=== PATIENT | female | born 1980 | race Caucasian/White ===

== ENCOUNTER 2016-10-18 05:15 | Inpatient (IN) | payer OTHER ==
[~2016-10-18] VITALS: Ht 160 cm; Wt 89.4 kg
--- NOTE | ~2016-10-18 | EKG ---
[address] [address] ELECTROCARDIOGRAM REPORT Name: LISAVIDYA Room #: 316-P ADM IN M.R.#: [id number] Admission: 10/18/16 Attend Phys: Sharmin Amador MD Discharge: Date of : 78 Report #: [id number] THIS REPORT FOR: //name// [facility] ED Test Date: 2016-10-18 Test Time: 05:29:51 Pat Name: VIDYA GONZALEZ Department: Room: [facility] Gender: F Belt Sander: KATRINA : 1980 Requested By: Jelena Peguero Order Number: [id number] MD: Lamin Kim Measurements Intervals [place] Rate: 85 P: 41 ME: 128 QRS: 21 QRSD: 83 T: 42 QT: 358 QTc: 426 Interpretive Statements Sinus rhythm Borderline repolarization abnormality Baseline wander in lead(s) V3,V4 No previous ECG available for comparison Electronically Signed On 10-18-2016 8:29:57 PLANNED GIVING OFFICER by Lamin Kim [email or web address] <ELECTRONICALLY SIGNED> By: Lamin Kim MD 10/18/16828 8 8 Lamin Kim MD /SHANE
--- NOTE | ~2016-10-18 | 2DMMODE ---
[facility] [place] [address] 2 D/M-MODE ECHOCARDIOGRAM Name: VIDYA GONZALEZ Room #: 316-P [facility] IN ..#: [id number] Admission: 10/18/16 Attend Phys: Sharmin Amador, Discharge: Date of : 78 Date of Service: 10/18/16 1107 Report #: [id number] THIS REPORT FOR: //name// Transthoracic Echocardiography Ordering physician: Mackenzie Nieto Referring physician: Mackenzie Nieto Casting Inspector: ISAAK Boyer Indications/History: Pulmonary embolism. BP: 139 / HR: 78bpm Height: 63in Weight: 179.6lb 72 Study data: M-mode, complete 2D, complete spectral Doppler, and color Doppler. Location: Echo laboratory. Routine. Image quality was good. 2D measurements Normal Normal LVID ED 47mm 36-57 IVS ED 8.5mm 6-11 LVID ES 33.8mm 23-40 LVPW ED 8mm 6-11 LA volume 20ml/m2 16-28 AoRoot diam 27.1mm 21-37 index ED LVOT diameter 22mm 18-23 Findings: Left ventricle: The cavity size was normal. Wall thickness was normal. Systolic function was normal. The estimated ejection fraction was in the range of 55% to 60%. Wall motion was normal. Right ventricle: The cavity size was normal. Systolic function was normal. Right atrium: The atrium was normal in size. Left atrium: The atrium was normal in size. Volume index: 20ml/m2 (S). Aortic valve: Structurally normal valve. Trileaflet. Doppler: There was no stenosis. Trivial regurgitation. Peak velocity: 134.4cm/s (S). [facility] [place] [address] 2 D/M-MODE ECHOCARDIOGRAM Name: VIDYA GONZALEZ Room #: 316-P [facility] IN M.R.#: [id number] Admission: 10/18/16 Attend Phys: Sharmin Amador, Discharge: Date of : 78 Date of Service: 10/18/16 1107 Report #: [id number] Mitral valve: Structurally normal valve. Doppler: There was no evidence for stenosis. No regurgitation. Peak E-wave velocity: 79.9cm/s. Peak gradient: 2.6mm Hg (D). Peak A-wave velocity: 65.5cm/s. Tricuspid valve: Structurally normal valve. Doppler: There was no evidence for stenosis. Trivial regurgitation. Pulmonic valve: Structurally normal valve. Doppler: There was no evidence for stenosis. No regurgitation. Pericardium: There was no pericardial effusion. Aorta: Aortic root: The aortic root was normal in size. Pulmonary artery: Pressure could not be reliably determined due to minimal or absent tricuspid insufficiency jet, but pulmonary hypertension was not suggested. Diastolic function: Normal diastolic function. Systemic veins: Inferior vena cava: The vessel was normal in size; the respirophasic diameter changes were in the normal range (= 50%). Conclusions 1. Left ventricle: The cavity size was normal. Wall thickness was normal. Systolic function was normal. The estimated ejection fraction was in the range of 55% to 60%. 2. Aortic valve: Structurally normal valve. Trileaflet. Trivial regurgitation. 3. Mitral valve: Structurally normal valve. No regurgitation. 4. Tricuspid valve: Structurally normal valve. Trivial regurgitation. 5. Pulmonary arteries: Pressure could not be reliably determined due to minimal or absent tricuspid insufficiency jet, but pulmonary hypertension was not suggested. <ELECTRONICALLY SIGNED> By: Roberto Kwong MD 10/18/16 1154 1107 1154 Roberto Kwong MD /raffi
[2016-10-18 05:46] LABS: ABSOLUTE NEUTROPHILS 6.8 thou/uL (1.4-8.2); BASOPHILS 0.8 % (0.0-2.0); HEMATOCRIT 42.4 % (37.0-47.0); HEMOGLOBIN 14.6 gm/dL (12.0-15.0); LYMPHOCYTES 18.7 % (24.0-44.0); MCH 30.7 pg (26.0-34.0); MCHC 34.4 % (28.0-37.0); MCV 89.4 fL (80.0-100.0); MONOCYTES 7.3 % (1.0-8.0); PLATELET COUNT 211 thou/uL (150-400); POLYS 70.2 % (36.0-66.0); RBC 4.75 mil/uL (4.20-5.00); RDW 12.6 % (10.5-14.5); WBC 9.6 thou/uL (4.0-11.0)
[2016-10-18 05:49] LABS: MANUAL DIFF NO
[2016-10-18 05:56] LABS: ANION GAP 13 mmol/L (7-16); BUN 13 mg/dL (7-18); CALCIUM 9.2 mg/dL (8.5-10.1); CHLORIDE 103 mmol/L (98-107); CO2 23 mmol/L (21-32); GLUCOSE 100 mg/dL (70-99); POTASSIUM 3.6 mmol/L (3.5-5.1); SODIUM 139 mmol/L (136-145)
[2016-10-18 06:06] LABS: TROPONIN-I < 0.04 ng/mL (<0.04-0.07)
[2016-10-18 08:13] VITALS: BP 121/51
[2016-10-18 08:25] VITALS: BP 139/72
[2016-10-18 09:23] LABS: CHOLESTEROL 178 mg/dL (<200); HDL CHOLESTEROL 72 mg/dL (>40); LDL CHOLESTEROL 91 mg/dL (<100); TC:HDL 2.5 Ratio (Not establshd); TRIGLYCERIDE 76 mg/dL (<150); VLDL 15 mg/dL (<40)
[2016-10-18 11:35] VITALS: BP 110/67
[2016-10-18 15:35] VITALS: BP 120/74
[2016-10-18 21:00] VITALS: BP 122/73
[2016-10-18 23:50] VITALS: BP 107/75
[2016-10-19 04:40] VITALS: BP 107/60
[2016-10-19 05:08] LABS: ALBUMIN 3.2 g/dL (3.4-5.0); CALCIUM 8.5 mg/dL (8.5-10.1); CREATININE 0.9 mg/dL (0.6-1.3); MAGNESIUM 2.1 mg/dL (1.8-2.4); TOTAL BILIRUBIN 0.4 mg/dL (<0.1-1.0); TOTAL PROTEIN 6.3 g/dL (6.4-8.2)
[2016-10-19 09:28] VITALS: BP 123/63
[2016-10-19 12:47] VITALS: BP 119/80
[2016-10-19 17:54] VITALS: BP 109/61
[2016-10-19 20:31] VITALS: BP 97/79
[2016-10-20 02:15] VITALS: BP 111/72
[2016-10-20 06:39] LABS: INR 1.1; PROTIME 11.6 Seconds (9.3-11.4)
[2016-10-20 08:36] VITALS: BP 119/69
[2016-10-20 12:00] VITALS: BP 111/48
[2016-10-20 16:00] VITALS: BP 114/40
[2016-10-20 19:40] VITALS: BP 123/71
[2016-10-21 04:50] VITALS: BP 96/54
[2016-10-21 06:09] LABS: HEMATOCRIT 39.6 % (37.0-47.0); HEMOGLOBIN 13.3 gm/dL (12.0-15.0); MCH 30.6 pg (26.0-34.0); MCHC 33.6 % (28.0-37.0); RBC 4.35 mil/uL (4.20-5.00); RDW 12.6 % (10.5-14.5); WBC 6.1 thou/uL (4.0-11.0)
[2016-10-21 07:06] VITALS: BP 109/62
[2016-10-21 11:49] LABS: INR 1.3; PROTIME 13.5 Seconds (9.3-11.4)
[2016-10-21 15:00] VITALS: BP 114/62
[2016-10-21 20:00] VITALS: BP 107/74
[2016-10-22 04:00] VITALS: BP 100/80
[2016-10-22 07:57] VITALS: BP 94/62
[2016-10-22 11:47] VITALS: BP 105/64
[2016-10-22 12:18] LABS: INR 1.7; PROTIME 17.6 Seconds (9.3-11.4)
[2016-10-22 15:36] VITALS: BP 108/67
[2016-10-22 20:32] VITALS: BP 108/69
[2016-10-23 04:19] VITALS: BP 109/48
[2016-10-23 10:00] VITALS: BP 123/62
[2016-10-23 11:46] LABS: PROTIME 20.4 Seconds (9.3-11.4)
[2016-10-23 13:00] VITALS: BP 114/49
[2016-10-23 16:00] VITALS: BP 123/69
[2016-10-23 22:20] VITALS: BP 118/51
[2016-10-24 05:30] VITALS: BP 104/54
[2016-10-24 06:01] LABS: HEMATOCRIT 41.5 % (37.0-47.0); HEMOGLOBIN 13.7 gm/dL (12.0-15.0); MCH 30.5 pg (26.0-34.0); MCHC 33.1 % (28.0-37.0); MCV 92.1 fL (80.0-100.0); RBC 4.51 mil/uL (4.20-5.00); RDW 12.6 % (10.5-14.5); WBC 6.2 thou/uL (4.0-11.0)
[2016-10-24 06:20] LABS: INR 1.8
[2016-10-24 08:42] VITALS: BP 114/69
[2016-10-24 11:16] VITALS: BP 111/61
[2016-10-24 16:46] VITALS: BP 107/57
[2016-10-24 20:00] VITALS: BP 118/72
[2016-10-25 04:00] VITALS: BP 111/65
[2016-10-25 05:19] LABS: INR 2.3; PROTIME 23.4 Seconds (9.3-11.4)
[2016-10-25 06:02] LABS: CALCIUM 8.5 mg/dL (8.5-10.1); CREATININE 0.9 mg/dL (0.6-1.3); POTASSIUM 4.1 mmol/L (3.5-5.1)
[2016-10-25 07:30] VITALS: BP 118/74
[2016-10-25] MEDS ORDERED: COUMADIN 1MG TAB1 M1 PO (11:54)
[2016-10-25] MEDS ORDERED: COUMADIN 5 MG TA5 M1 PO (11:57)
[2016-10-25 12:35] VITALS: BP 114/63
[2016-10-25 13:00] VITALS: BP 114/63
[2016-10-25] MEDS ORDERED: LORTAB 5-325 M1 EACH PO (14:52)
== END 2016-10-25 15:10 | disposition home or self-care (01) | DRG 813 ==
LOC: ER 05:15 → EROBS 07:34 → 3N 07:34
PROVIDERS: Emergency Medicine; Hospitalist; Nurse Practitioner; Nurse Practitioner Family
DX: D68.9 Coagulation defect, unspecified (principal); I26.99 Other pulmonary embolism without acute cor pulmonale; E63.9 Nutritional deficiency, unspecified; R06.02 Shortness of breath; K59.00 Constipation, unspecified; Z86.2 Personal history of diseases of the blood and blood-forming organs and certain disorders involving the immune mechanism
CPT/HCPCS: 10096